=== PATIENT | male | born 1955 | race Caucasian/White ===

== ENCOUNTER → 2023-05-14 07:23 | Outpatient (REF) | payer MEDICARE, OTHER, SELFPAY ==
[2023-05-14 09:14] LABS: ALT (SGPT) 36 U/L (0-50); AST (SGOT) 37 U/L (17-59); Albumin 4.1 g/dl (3.5-5.0); Alkaline Phosphatase 62 U/L (38-126); Blood Urea Nitrogen 21 mg/dl (9-20); Calcium 9.7 mg/dl (8.4-10.2); Carbon Dioxide 31 mmol/L (22-30); Chloride 100 mmol/L (98-107); Glucose 107 mg/dl (70-99); HDL Cholesterol 50 mg/dl; LDL Cholesterol, Calculated 54 mg/dl; Potassium 3.8 mmol/L (3.5-5.1); Sodium 138 mmol/L (135-145); Total Bilirubin 1.8 mg/dl (0.2-1.3); Total Cholesterol 123 mg/dl (50-199); Total Protein 7.1 g/dl (6.3-8.2); Triglyceride 99 mg/dl (10-149); Very Low Density Lipoprotein 19 mg/dl (0-30); eGFR > 60.00
== END ==
LOC: REG 07:23
PROVIDERS: ATTENDING PHYSICIAN Student in an Organized Health Care Education/Training Program
DX: Z00.00 Encounter for general adult medical examination without abnormal findings (principal); R93.1 Abnormal findings on diagnostic imaging of heart and coronary circulation; E78.00 Pure hypercholesterolemia, unspecified
CPT/HCPCS: 36415; 80053; 80061

== ENCOUNTER → 2023-12-31 07:09 | Outpatient (REF) | payer MEDICARE, OTHER, SELFPAY ==
[2023-12-31 09:21] LABS: ALT (SGPT) 35 U/L (0-50); AST (SGOT) 40 U/L (17-59); Albumin 4.7 g/dl (3.5-5.0); Alkaline Phosphatase 59 U/L (38-126); Blood Urea Nitrogen 21 mg/dl (9-20); Calcium 9.8 mg/dl (8.4-10.2); Carbon Dioxide 29 mmol/L (22-30); Chloride 102 mmol/L (98-107); Glucose 102 mg/dl (70-99); HDL Cholesterol 55 mg/dl; LDL Cholesterol, Calculated 64 mg/dl; Potassium 4.5 mmol/L (3.5-5.1); Sodium 143 mmol/L (135-145); Total Bilirubin 1.6 mg/dl (0.2-1.3); Total Cholesterol 127 mg/dl (50-199); Total Protein 7.2 g/dl (6.3-8.2); Triglyceride 43 mg/dl (10-149); Very Low Density Lipoprotein 8 mg/dl (0-30); eGFR > 60.00
[2023-12-31 09:44] LABS: PSA, Total - Screen 2.89 ng/ml (0.0-4.0)
[2023-12-31 10:24] LABS: TSH Reflex To Free T4 0.64 uIU/ml (0.47-4.68)
== END ==
LOC: REG 07:09
PROVIDERS: ATTENDING PHYSICIAN Student in an Organized Health Care Education/Training Program
DX: Z00.00 Encounter for general adult medical examination without abnormal findings (principal); I10 Essential (primary) hypertension; E78.00 Pure hypercholesterolemia, unspecified; E78.5 Hyperlipidemia, unspecified
CPT/HCPCS: 36415; 80053; 80061; 84443; G0103

== ENCOUNTER → 2024-01-13 07:37 | Outpatient (REF) | payer MEDICARE, OTHER, SELFPAY | LOC: HWRAD 07:37 | PROVIDERS: ATTENDING PHYSICIAN Student in an Organized Health Care Education/Training Program | DX: E04.9 Nontoxic goiter, unspecified (principal) | CPT/HCPCS: 76536 ==

== ENCOUNTER → 2024-01-23 13:02 | Outpatient (REF) | payer MEDICARE, OTHER, SELFPAY | LOC: HWRAD 13:02 | PROVIDERS: ATTENDING PHYSICIAN Internal Medicine; FAMILY PHYSICIAN Student in an Organized Health Care Education/Training Program | DX: Z87.891 Personal history of nicotine dependence (principal) | CPT/HCPCS: 76770 ==

== ENCOUNTER → 2024-01-24 15:43 | Outpatient (REF) | payer MEDICARE, OTHER, SELFPAY | LOC: HWRCS 15:43 | PROVIDERS: ATTENDING PHYSICIAN Internal Medicine; FAMILY PHYSICIAN Student in an Organized Health Care Education/Training Program | DX: I10 Essential (primary) hypertension (principal) | CPT/HCPCS: 93306 ==

== ENCOUNTER → 2024-02-08 10:01 | Outpatient (REF) | payer MEDICARE, OTHER, SELFPAY ==
[2024-02-08 10:10] VITALS: BP 140/86; BP_SYST 80
[2024-02-08 11:35] VITALS: BP 140/86
== END ==
LOC: RADI 10:01
PROVIDERS: ATTENDING PHYSICIAN Student in an Organized Health Care Education/Training Program
DX: E04.1 Nontoxic single thyroid nodule (principal)
CPT/HCPCS: 88173; 10005

== ENCOUNTER → 2024-02-22 06:26 | Day surgery (SDC) | payer MEDICARE, OTHER, SELFPAY | LOC: GI 06:26 | PROVIDERS: ATTENDING PHYSICIAN Internal Medicine Gastroenterology | DX: Z12.11 Encounter for screening for malignant neoplasm of colon (principal); K64.8 Other hemorrhoids; Z86.0100 Personal history of colon polyps, unspecified | CPT/HCPCS: G0105 ==

== ENCOUNTER 2024-03-17 11:09 | Inpatient (IN) | payer MEDICARE, OTHER, SELFPAY ==
[2024-03-17] VITALS (18 sets, daily range): BP systolic 93–149; BP diastolic 63–115; BMI 26.2
[2024-03-17 08:36] LABS: % Basophils 0.6 % (0-2); % Eosinophils 2.2 % (0-6); % Immature Granulocytes 0.6 % (0-0.5); % Monocytes 10.7 % (1.7-9.3); % Neutrophils 60.9 % (42.2-75.2); Absolute Eosinophils 0.1 10^3/uL (0-0.7); Absolute Lymphocytes 1.3 10^3/uL (1.2-3.4); Absolute Monocytes 0.5 10^3/uL (0.1-0.6); Absolute Neutrophils 3.1 10^3/uL (1.4-6.5); Hematocrit 47.3 % (39.0-52.0); Hemoglobin 16.6 g/dL (13.0-18.0); Mean Corp Hgb Conc. 35.1 g/dL (33.0-37.0); Mean Corpuscular Hgb 31.3 pg (27.0-31.0); Mean Corpuscular Volume 89.1 fL (80.0-94.0); Mean Platelet Volume 10.1 fL (7.4-10.4); Nucleated Red Blood Cells % 0 % (-); Platelet Count 160 10^3/uL (130-400); Red Blood Cell Count 5.31 10^6/uL (4.70-6.10); Red Cell Dist. Width 13.2 % (11.5-14.5); White Blood Cell Count 5.1 10^3/uL (4.8-10.8)
[2024-03-17 08:40] LABS: INR 0.97; PT 13.4 Sec (11.4-14.6)
[2024-03-17 08:41] LABS: APTT 32.3 Sec (23.4-35.0)
[2024-03-17 08:42] LABS: ALT (SGPT) 37 U/L (0-50); AST (SGOT) 41 U/L (17-59); Albumin 4.7 g/dl (3.5-5.0); Alkaline Phosphatase 48 U/L (38-126); Blood Urea Nitrogen 20 mg/dl (9-20); Calcium 9.9 mg/dl (8.4-10.2); Carbon Dioxide 30 mmol/L (22-30); Chloride 97 mmol/L (98-107); Estimated Creatinine Clearance 85 ml/min; Glucose 135 mg/dl (70-99); Potassium 4.1 mmol/L (3.5-5.1); Sodium 137 mmol/L (135-145); Total Bilirubin 1.7 mg/dl (0.2-1.3); Total Protein 7.3 g/dl (6.3-8.2); eGFR > 60.00
[2024-03-17 08:44] LABS: Troponin I 0.123 ng/ml
--- NOTE | 2024-03-17 09:04 | EDRN ---
0930 Dr. Godoy from Cardiology at the bedside assessing the patient, obtaining consent, and requests to leave for the scientific laboratory supervisor now. plug maker to the scientific laboratory supervisor and care handed off to the staff at 0844. No incidents during transport with
cardiology and spouse present.
DISCHARGED TIME ACTUALLY 0840
--- NOTE | 2024-03-17 09:07 | ED.GENMED ---
History of Present Illness
General
Chief Complaint: Chest Pain
Source: patient
Time Seen by Provider: 03/17/24 08:57
History of Present Illness
History of Present Illness:
69-year-old male presents to the emergency room complaining of throat and upper chest discomfort. He describes it as a burning or tightness. Patient had an episode last night which was significant but went away after few minutes. This morning
while reading a book the pain returned and was severe. He rates it at 9 out of 10. Upon arrival to the emergency room the pain seemed to improve significantly but was still present. Patient denies any previous cardiac history. He quit smoking in
2010. He does have a history of hypertension and high cholesterol. He did not take any medication today for his symptoms.
Past History
Past History
ED Past Medical History: HTN
ED Past Surgical History: Orthopedic
Social History
Tobacco: Former smoker
Personal:
Living: with family
Employment: Employed
Phy Exam
Physical Exam
Physical Exam:
General: Awake, Alert, Oriented X3. No acute distress.
Vitals: unremarkable
Head: Atraumatic
Eyes: Pupils equal, EOMI
Throat: Airway intact, no exudates
Neck: Trachea midline
Lungs: Clear and equal b/l
Heart: Regular rate, no murmurs
Abd: Soft, Nontender, No pulsatile mass
Neuro: Nonfocal
Skin: Warm, dry, no rash
Extremities: pulses equal b/l, no edema
Scores
Heart Score for Chest Pain Patients
STEMI patient?: Yes
Course
Orders/Labs/Results
Orders:
Orders
03/17/24
Electrocardiogram (*1) Stat
Reason for Study: Chest Pain
Comment: DONE
03/17/24 07:51
EKG- Treatment ONCE
03/17/24 07:52
Electrocardiogram (*1) Urgent
Reason for Study: Chest Pain
03/17/24 08:03
Cardiac Monitoring- Treatment ONCE
IV Insert/Care/Rem.- Treatment PRN
O2 Therapy [RESP] Urgent
Titrate/Wean O2 to maintain O2 sat greater than (%): 90
Special Instructions: Maintain sats >/=90%
Pulse Ox/spot Check [RESP] Urgent
Quantity: 1
Special Instructions: ON ROOM AIR
03/17/24 08:05
Complete Blood Count/With Diff Urgent
Comprehensive Metabolic Panel Urgent
PT/INR [Prothrombin Time] Urgent
PTT Urgent
Troponin I Urgent
03/17/24 08:41
Heparin 1000 Units/500 ml [Heparin] 1,000 units in 500 ml .ROUTE .STK-MED
Heparin Sodium,Porcine/Ns/Pf [Heparin 2000 Units/1000 ml] 2,000 unit in 1,000 ml .ROUTE .STK-MED
Lidocaine HCl/Pf [Xylocaine-Mpf 1% Vial] 50 mg .ROUTE .STK-MED ONE
Nitroglycerin [Tridil] 1,500 mcg .ROUTE .STK-MED ONE
Verapamil Injectable [Isoptin/Verapamil Injection] 5 mg .ROUTE .STK-MED ONE
03/17/24 08:50
Midazolam HCl [Versed] 2 mg .ROUTE .STK-MED ONE
03/17/24 08:51
Fentanyl Citrate/Pf [Sublimaze] 100 mcg .ROUTE .STK-MED ONE
Heparin 10,000 units .ROUTE .STK-MED ONE
Abnormal Lab Results
03/17/24
08:05
MCH 31.3 H pg
(27.0-31.0)
Immature Gran % 0.6 H %
(0-0.5)
Monocytes % 10.7 H %
(1.7-9.3)
Chloride 97 L mmol/L
(98-107)
Glucose 135 H mg/dl
(70-99)
Total Bilirubin 1.7 H mg/dl
(0.2-1.3)
Troponin I 0.123 H* ng/ml
03/17/24 08:05
03/17/24 08:05
Vital Signs
Initial and Last Documented VS:
Initial Vital Signs
Pulse Ox
97
03/17/24 08:03
Last Documented Vital Signs
Temp Pulse Resp BP Pulse Ox
97.9 F 86 11 147/91 98
03/17/24 08:08 03/17/24 08:30 03/17/24 08:30 03/17/24 08:30 03/17/24 08:30
MDM/Problems Addressed
Differential Diagnosis Includes:
STEMI, acute coronary syndrome, chest wall pain
MDM/Problems Addressed:
Patient's initial EKG consistent with a STEMI. There is ST elevation in 2 3 aVF with reciprocal changes in aVL. STEMI alert was called. Dr. Marx evaluated the patient briefly at the bedside. There is a previous STEMI alert who he is about to
take to the Loss Control Consultant. Backup die assembler has been summoned. Dr. Anderson will take this patient to the Loss Control Consultant soon as possible. Patient was given 4 baby aspirin, 180 mg of Brilinta and 5000 unit bolus of heparin. Patient states
his chest pain has almost completely gone away spontaneously.
Chronic conditions affecting care: HTN
*Pulse Oximetry
Patient hypoxic: no
*EKG
Interpreted by ED Provider?: Yes
Heart Rate: 89
Rate: normal
Rhythm: sinus
Ischemia: ST elevation (II, III, avf with reciprocal changes in aVL)
*Certified Orthoptist Interpretation
Rate: normal
Interpretation: normal
Rhythm: sinus
*Critical Care Note
Total Time (30-74mins, 75-104mins- exclusive of procedures): 25 min
comment:
Critical care statement: A total of 25 minutes of critical care time was provided for this patient. This includes management of unstable vital signs, evaluation of the patient at bedside, reviewing the patient's pertinent medical records, discussion
with consultants, review of old EKGs and review of pertinent medical records. This time with separate from time utilized to perform the aforementioned documented procedures
ED Attending Note
-
Portions of this chart may have been created with voice recognition software.� Occasional wrong word or��sound alike� substitutions may have occurred due to the inherent limitations of voice recognition software.
Discharge Plan
Departure
Patient Disposition: Admit
Admit to: farm labor contractor
Presentation/result/management discussed w/ accepting MD/DO: Dr. Anderson
Condition: Serious
Discharge Problem:
Acute NC, inferior wall
Interventions
Interventions:
*Risk Screen - Suicide Last Done: 03/17/24 08:03
*General Assessment Last Done: 03/17/24 08:03
*Neglect/Abuse Screening Last Done: 03/17/24 08:03
ED- Fall Risk Assessment Last Done: 03/17/24 08:03
*ED COVID-19 Vaccine History Last Done: 03/17/24 08:03
*Nursing Disposition Last Done: 03/17/24 08:40
ED- Cardiac Assessment Last Done: 03/17/24 08:03
Discharge Date and Time
Discharge Date/Time: 03/17/24 09:00
--- NOTE | 2024-03-17 10:47 | CON.CAR ---
Consultation
Consultation Request
Date/Time Consultation Requested: 03/17/2024 8 AM
Date/Time Consultation Performed: 03/17/2024 8 AM
Requesting Provider: Dr. Best Amin
Performing Provider: Dr. Reza Anderson
Reason for Consultation: Inferior STEMI
Medical History
-
Chief Complaint: Chest pain
History of Present Illness:
Mr. Martinez is a 69-year-old man with past medical history of hypertension, former smoking, CAD based on elevated calcium score, hyperlipidemia, who presents with 2 days of stuttering chest pain found to have inferior STEMI. He first noted
symptoms 2 nights ago where he woke from sleep with throat tightness. This resolved without intervention. This morning he had a second episode which was more severe prompting him to come to the ED where initial EKG in the setting of severe chest
pain demonstrated inferior ST elevations. He was given heparin aspirin, and ticagrelor. Chest pain improved with normalization of ECG changes, but based on his initial presenting definitive STEMI he was activated emergently for coronary
angiography. This demonstrated a thrombotic lesion in the proximal RCA as well as distal RCA disease which was treated with 2 overlapping stents with excellent result. He developed a left bundle branch block during the procedure. At the
conclusion of the procedure he was hemodynamically stable and chest pain-free and was admitted to the IVU for further care.
Past Medical History
Past Medical History: CAD
Social History
Tobacco: Former Smoker
Allergies / Home Medications
Allergy/AdvReac Type Severity Reaction Status Date / Time
erythromycin base Allergy mood Verified 03/17/24 10:42
[From Kevin-Tab] effected
oxycodone AdvReac Pharmacy Verified 03/17/24 10:42
to Review
�Medication �Instructions �Recorded �Confirmed �Type
lorazepam 0.5 mg tablet 0.5 mg PO HS PRN SLEEP 01/10/18 02/02/18 History
aspirin 325 mg tablet,delayed 325 mg PO DAILY 02/02/18 02/02/18 Rx
release
acetaminophen 325 mg tablet 650 mg (2 x 325 mg) PO Q4HPRN PRN 02/07/18 03/17/24 Rx
mild pain
atorvastatin 40 mg tablet (Lipitor) 40 mg PO DAILY 03/17/24 03/17/24 History
benazepril 10 1 tab PO DAILY 03/17/24 03/17/24 History
mg-hydrochlorothiazide 12.5 mg
tablet
omeprazole magnesium 20 mg 20 mg PO DAILY 03/17/24 03/17/24 History
tablet,delayed release (Prilosec
OTC)
Review of Systems
-
Cardiac: Chest Pain
Physical Exam
Vital Signs
Temp Pulse Resp BP Pulse Ox
36.6 C 86 11 147/91 98
03/17/24 08:08 03/17/24 08:30 03/17/24 08:30 03/17/24 08:30 03/17/24 08:30
Lab Results
03/17/24 08:05
03/17/24 08:05
Troponin I 0.123 ng/ml H* 03/17/24 08:05
Physical Exam
General: Well Developed
Respiratory: Non Labored Respirations
Cardiac: Regular Rhythm
Neuro: AO x 3
Impression / Plan
-
69-year-old man with hypertension, hyperlipidemia, coronary artery disease, who presents with inferior STEMI status post successful PCI.
# CAD
# STEMI
# HLD
- cont. DAPT with ASA/ticagrelor for 12 months
- lisinopril 5
- despite well controlled LDL (50-60s recently on Lipitor 40) he had a plaque rupture [place], so will need as ALARA LDL. Will transition to Crestor 40 and ezetimibe, with plan to start PCSK9i as outpatient
- check Lp(a) and A1c
- will plan for possible complete revascularization of the non-culprit 60% mid-LAD Tuesday
# LBBB
- occurred after re-canalization of the RCA
- will hold beta diony for now
- monitor tele
# HTN
- HZTC [address] home benazapril-HCTZ
- titrate for goal <130/70
Data Reviewed
-
EKG: Tracing Personally Visualized and interpreted, Discussed with Physician, Discussed with Patient and Discussed with Family
Labs: Labs Reviewed by me
--- NOTE | 2024-03-17 11:04 | ITS.CL.PN ---
Guest Request Runner - Procedure Note
Procedure
Procedure Note:
CARDIAC CATHETERIZATION REPORT
Date of Procedure: 03/17/2024
Referring: Dr. Tommy Amin MD
Indication: inferior STEMI
PROCEDURE(S)
1. left heart catheterization
2. coronary angiography
3. PCI of RCA with stent
4. IVUS of RCA
ACCESS: 6F right radial artery (closure: radial band)
CATHETERS
1. 6F JL3.5
2. 6F JR4
3. 6F JR4 guide
HEMODYNAMIC DATA
LV 140/14 (EDP 23) mmHg
AO 134/81 (mean 102) mmHg
CORONARY ANGIOGRAPHY
Dominance: right
LM: Large without disease
LAD: Large vessel giving rise to a moderate caliber D1, small D2 and multiple septal perforators. There is a focal 60% stenosis in the proximal portion of D1 (best seen HUNGARIAN cranial), a 60% stenosis in the mid-LAD from just proximal to D1 extending
to the takeoff of D2, and otherwise diffuse mild disease.
LCx: Large vessel giving rise to a large high rising ramus/OM1, moderate caliber OM 2, and large OM 3. There is diffuse non-obstructive mild to moderate disease.
RCA: Very large and tortuous vessel giving rise to a large RPDA, small RPL 1, small RPL 2, moderate caliber RPL 3, and small RPL 4. There is a thrombotic lesion in the proximal RCA, diffuse mild to moderate disease throughout the mid vessel, a
focal 60% lesion in the mid-distal vessel.
PCI to RCA
Heparin was administered to achieve ACT greater than 300. The RCA was engaged with a 6 [place] Sor[place] JR4 guide catheter and a Runthrough wire placed in the distal RPDA. Initial lesion preparation was performed with a 2.5 x 12 mm semicompliant balloon
followed by a 3.5 x 12 noncompliant balloon with full expansion. Given the tortuous and calcified nature of the vessel a 6 [place] Sor[place] Guideliner was required to facilitate delivery of overlapping 4.0 x 38 and 4.0 x 26 mm [place] drug-eluting
stents. IVUS was performed demonstrating distal stent edge apposition, mild underexpansion at the lesion site, and mild undersizing in the non-distal portion of the stent. Post dilation was thus performed with a 4.5 x 20 mm NC balloon taken to
nominal pressure at the distal stent edge and 18 mmHg everywhere else. Final angiographic result was excellent. During the case the patient developed a left bundle branch block in sinus rhythm. He remained hemodynamically stable throughout the
case. The wire and guide were removed and a TR band placed. The patient was taken to the IVU in stable condition. Family was updated.
RADIATION: dose 1373 mGy; DAP 90 Gy*cm2; fluoroscopy time 28.5 min
CONCLUSIONS
1. Two-vessel obstructive coronary artery disease in a right dominant system with culprit proximal RCA stenosis.
2. Moderately elevated LV filling pressure and no aortic stenosis.
2. Successful IVUS guided PCI of the proximal to mid RCA with placement of overlapping 4.0 x 38 and 4.0 x 26 mm Christophe [place] drug-eluting stents postdilated to high-pressure with a 4.5 mm NC balloon.
RECOMMENDATIONS
1. expectant management after cardiac catheterization via right radial approach
2. DAPT with ASA/ticagrelor for 1 year
3. hold beta diony for now given LBBB, monitor tele
4. transition to rosuvastatin 40 and ezetimibe 10
5. lisinopril [address] of home benazepril-HCTZ, eventual goal BP <130/70
6. will consider complete revascularization of the LAD Tuesday
Copy to: Dr. Best Rosenthal MD (bicycle taxi driver); Dr. Tyra Ivey MD (PCP)
Signed: Jarett Godoy MD, PhD
[2024-03-17 11:29] LABS: Troponin I 0.805 ng/ml
[2024-03-17 11:40] LABS: Glycohemoglobin (HgbA1c) 5.4 % (4.0-5.6)
[2024-03-17] MEDS: ORETIC 25 MG PO (12:25)
[2024-03-17] MEDS: ZESTRIL 5 MG PO (12:26)
[2024-03-17] MEDS: CRESTOR 40 MG PO (17:30)
--- NOTE | 2024-03-17 18:01 | PTCARENOTE ---
Assumed care of pt at aprox 1500. Vitals stable. Pt with no c/o pain at this time. Pt with right radial cath site, pulse good and dressing CDI. SR BBC on monitor.
[2024-03-17] MEDS: BRILINTA 90 MG PO (20:31)
[2024-03-18] VITALS (9 sets, daily range): BP systolic 107–125; BP diastolic 70–93; BMI 24.7
--- NOTE | 2024-03-18 00:05 | PTCARENOTE ---
Rec'd pt at change of shift. Pt pleasant, AAO*3, VSS, and in NSR on TELE monitor. Pt denies any pain or discomfort. Pt updated on plan of care and agreeable. Pt resting with call moody in reach. Plan of care ongoing.
[2024-03-18 05:00] LABS: Hematocrit 45.6 % (39.0-52.0); Hemoglobin 16.3 g/dL (13.0-18.0); Mean Corp Hgb Conc. 35.7 g/dL (33.0-37.0); Mean Corpuscular Hgb 30.8 pg (27.0-31.0); Mean Corpuscular Volume 86.2 fL (80.0-94.0); Mean Platelet Volume 10.4 fL (7.4-10.4); Platelet Count 165 10^3/uL (130-400); Red Blood Cell Count 5.29 10^6/uL (4.70-6.10); White Blood Cell Count 8.2 10^3/uL (4.8-10.8)
[2024-03-18 05:25] LABS: Blood Urea Nitrogen 16 mg/dl (9-20); Calcium 9.6 mg/dl (8.4-10.2); Carbon Dioxide 25 mmol/L (22-30); Chloride 100 mmol/L (98-107); Estimated Creatinine Clearance 96 ml/min; Glucose 106 mg/dl (70-99); HDL Cholesterol 42 mg/dl; LDL Cholesterol, Calculated 60 mg/dl; Potassium 3.6 mmol/L (3.5-5.1); Sodium 135 mmol/L (135-145); Total Cholesterol 124 mg/dl (50-199); Triglyceride 112 mg/dl (10-149); Very Low Density Lipoprotein 22 mg/dl (0-30); eGFR > 60.00
--- NOTE | 2024-03-18 08:11 | PTCARENOTE ---
pt recevied form outgoing RN, pt aaox4, up in bed, breakfast in the room, vss, ra, no c/o cp, self care, continue to monitor and assist as needed.
[2024-03-18] MEDS: ORETIC 25 MG PO (08:45)
[2024-03-18] MEDS: ZETIA 10 MG PO (08:45)
[2024-03-18] MEDS: LOW STRENGTH ASPIRIN 81 MG PO (08:45)
[2024-03-18] MEDS: BRILINTA 90 MG PO ×2 (08:45→19:23)
[2024-03-18] MEDS: ZESTRIL 5 MG PO (08:45)
[2024-03-18] MEDS: PROTONIX 40 MG PO (08:45)
--- NOTE | 2024-03-18 11:37 | W.PN.CD ---
Today's Communication / Plan
-
npo after midnight for cath tomorrow
Impression / Plan
-
69-year-old man with hypertension, hyperlipidemia, coronary artery disease, who presents with inferior STEMI status post successful PCI.
# CAD
# STEMI
# HLD
- cont. DAPT with ASA/ticagrelor for 12 months
- lisinopril 5
- despite well controlled LDL (50-60s recently on Lipitor 40) he had a plaque rupture [place], so will need as ALARA LDL. Will transition to Crestor 40 and ezetimibe, with plan to start PCSK9i as outpatient
- check Lp(a) and A1c
- will plan for complete revascularization of the non-culprit 60% mid-LAD Tuesday
# LBBB
- occurred after re-canalization of the RCA
- will hold beta diony for now
- monitor tele
# HTN
- HZTC [address] of home benazapril-HCTZ
- titrate for goal <130/70
Subjective: STEVE feels well
Physical Exam
Vital Signs/Labs
Vital Signs
Temp Pulse Resp BP Pulse Ox
97.3 F 77 20 125/93 97
03/18/24 11:32 03/18/24 08:03 03/18/24 11:32 03/18/24 08:03 03/18/24 11:32
03/17/24 03/18/24 03/19/24
06:59 06:59 06:59
Actual Weight 186 lb 15.232 oz
03/18/24 04:16
03/18/24 04:16
PT 13.4 Sec (11.4-14.6) 03/17/24 08:05
INR 0.97 03/17/24 08:05
APTT 32.3 Sec (23.4-35.0) 03/17/24 08:05
Triglycerides 112 mg/dl (10-149) 03/18/24 04:16
LDL Cholesterol, Calc 60 mg/dl 03/18/24 04:16
VLDL Cholesterol, Calc 22 mg/dl (0-30) 03/18/24 04:16
HDL Cholesterol 42 mg/dl 03/18/24 04:16
LAB Results
03/17/24 03/17/24 03/17/24
08:05 10:56 17:05
Troponin I 0.123 H* 0.805 H* D 2.570 H* D
03/17/24
22:50
Troponin I 2.080 H*
Physical Exam
Constitutional: No acute distress and Comfortable
EENT: Anicteric
Cardiovascular: Rhythm & rate is regular and Pedal edema is absent
Respiratory: Respiratory effort normal and Lungs clear to auscul.
Neuro/Psych: AO x 3
Other: Cath Site (2+ radial pulse )
Data Reviewed
-
Date of Service: March 18, 2024
Medical Decision Making: Reviewed Test Results
EKG: Tracing Personally Visualized and interpreted (sr)
Labs: Labs Reviewed by me
--- NOTE | 2024-03-18 12:09 | PTCARENOTE ---
Pt reassessment unchanged from previous, vss, ra, nsr with rbbb, oob in chair per self, ambulating halls.
--- NOTE | 2024-03-18 16:28 | PTCARENOTE ---
Pt reassessment unchanged from previous, vss, ra, nsr with rbbb, no c/o cp, ambulating in the room, self care, plan for cathlab tomorrow npo @ midnight.
[2024-03-18] MEDS: CRESTOR PO (16:51)
[2024-03-18] MEDS: LOVENOX 40 MG SC (18:40)
[2024-03-18] MEDS: CRESTOR 40 MG PO (18:40)
[2024-03-19] VITALS (14 sets, daily range): BP systolic 111–182; BP diastolic 61–163; BMI 24.6
--- NOTE | 2024-03-19 03:24 | PTCARENOTE ---
Rec'd pt at change of shift. Pt AAO*3, VSS, in NSR on TELE monitor, and pleasant. Pt denies any pain or discomfort. Pt updated on plan of care and NPO status for upcoming heart cath in morning. Pt resting with call moody in reach. Plan of care
ongoing.
[2024-03-19] MEDS: LOW STRENGTH ASPIRIN 81 MG PO (07:53)
[2024-03-19] MEDS: BRILINTA 90 MG PO ×2 (07:53→19:43)
--- NOTE | 2024-03-19 07:57 | PTCARENOTE ---
pt left for cath, report given to Minnie CROWDER.
[2024-03-19 08:39] LABS: ACT-LR - POC 400 Seconds (116-155)
[2024-03-19 08:57] LABS: ACT-LR - POC > 397 Seconds (116-155)
[2024-03-19 08:57] LABS: ACT-LR - POC > 397 Seconds (116-155)
[2024-03-19 09:31] LABS: ACT-LR - POC 379 Seconds (116-155)
[2024-03-19 09:31] LABS: ACT-LR - POC 339 Seconds (116-155)
[2024-03-19 10:18] LABS: ACT-LR - POC 331 Seconds (116-155)
[2024-03-19 10:55] LABS: ACT-LR - POC 252 Seconds (116-155)
[2024-03-19] MEDS: PROTONIX 40 MG PO (11:58)
[2024-03-19] MEDS: ORETIC 25 MG PO (11:58)
[2024-03-19] MEDS: ZESTRIL 5 MG PO (11:58)
[2024-03-19] MEDS: ZETIA 10 MG PO (11:58)
--- NOTE | 2024-03-19 12:00 | PTCARENOTE ---
late note due to pt care.
pt returned from cleaning laborer @ 1140. VSS, educated on expected OOB time and restrictions. Right wrist CDI. 97% on RA. Will continue to monitor.
[2024-03-19 12:09] LABS: Lipoprotein a (Lp a) <6 mg/dL (<=29)
--- NOTE | 2024-03-19 12:26 | CM ---
Reviewed chart. Met with and Mrs. Martinez to review discharge plans. He states prior to admission he resides with his spouse in a two story home with two steps to enter. He states he has a first floor set-up. He states prior to admission he
was independent with ambulation and adls. He states he has a prescription plan with [employer] and uses [facility]. We reviewed his co-pay for Brilinta 90 mg po bid. He is still in his stage one of his coverage and he has not met his
deductible. Si His first script would be $413.00 a month until his deductible has been met. Then it would be $103.04. a month. They are agreeable to covering the cost of Brilinta for a year. Placed the one month free coupon in his red discharge
folder. Telephone call to [facility] to see if they have Brilinta 90 mg po bid in stock. They have a few pill but not the whole script. N.P will send script to [facility] so they can order the medication. Medical work-up in progress. The
discharge plan is to return home with his spouse when medically stable.
[2024-03-19] MEDS: TYLENOL 650 MG PO ×2 (12:33→19:43)
--- NOTE | 2024-03-19 13:59 | ITS.CL.PN ---
[facility] Specialist - Procedure Note
Procedure
Procedure Note:
CARDIAC CATHETERIZATION REPORT
Date of Procedure: 03/19/2024
Referring: Dr. Jarett Anderson MD, PhD
Indication: Complete revascularization after STEMI
PROCEDURE(S)
1. left heart catheterization
2. PCI with stent to diagonal artery
3. IVUS of LAD
4. Shockwave lithotripsy of LAD
5. PCI with stent to LAD
ACCESS: 6F right radial artery (closure: radial band)
CATHETERS: 6F EBU 3.5 guide catheter
HEMODYNAMIC DATA
LV [ ] mmHg
AO [ ] mmHg
PCI to D1 and LAD
Heparin was administered to achieve ACT greater than 300. Runthrough coronary wires were placed in the D1 and distal LAD. With GuideLiner support, initial lesion preparation of the diagonal was achieved with a 2.0 x 12 mm balloon taken to nominal
pressure. With some difficulty, a 2.25 x 12 mm stent was delivered and deployed at 16 JUSTIN to the diagonal. Angiographic result was excellent. Attention then turned to the LAD. Initial lesion preparation was performed with a 2.5 x 12 mm balloon.
IVUS was performed and demonstrated concentric calcification of the lesion site and 3.75 mm reference diameter. Shockwave lithotripsy was performed with a 3.5 x 12 mm lithotripsy balloon with 40 pulses delivered with full expansion at 6 JUSTIN.
Stenting was performed with a 3.5 x 15 mm stent at 16 JUSTIN. Post dilation was performed with a 3.75 x 12 mm NC balloon taken to 18 justin. There was noted to be haziness in the ostial diagonal concerning for dissection or thrombus. The decision was
made to perform bailout PCI of the ostial to proximal diagonal. The diagonal was rewired through stent struts with a fresh Runthrough wire, followed by opening of cell struts with a 1.5 x 12 mm balloon. Lesion preparation was performed with a
2.0x12 mm balloon. While there was angiographic improvement in the diagonal and WILMAR-3 flow there remained haziness. Thus, the decision was made to perform TAP stenting of the LAD/diagonal. A 3.5 x 12 mm semi-compliant balloon was placed in the
distal LAD followed by delivery of a 2.25 x 8 mm SADIA to the ostial to proximal diagonal overlapping the previous diagonal stent distally and with ~1 mm protrusion into the LAD proximally. The stent was delivered at 16 JUSTIN, followed by kissing
balloon inflation with the stent balloon and propositioned 3.5 x 12 compliant balloon. Angiographic result was excellent. However, there now appeared an area of haziness at the proximal stent edge of the LAD. Integrilin bolus and drip were
initiated. IVUS was performed and demonstrated plaque but no definitive thrombus or dissection. There was no dissection noted in the left main. Given persistent angiographic abnormality despite in multiple views, the decision was made to cover
the proximal LAD with a second 3.5 x 12 mm stent. This was then postdilated to high-pressure with a 3.75 x 12 mm NC balloon. Final angiographic result was excellent other than a very distal cutoff of the LAD, likely embolized thrombus. The
patient had no chest pain and there were no ST changes on the monitor. The wire and guide were removed. LVEDP was measured with a diagnostic pigtail catheter. A TR band was placed. The patient was taken in stable condition to the IVU with plan
for 4 hours of Integrilin drip and overnight monitoring.
RADIATION: dose 2043 mGy; DAP 105 Gy*cm2; fluoroscopy time 52.7 min
CONCLUSIONS
1. Successful IVUS-guided PCI to the LAD-diagonal with Shockwave lithotripsy of the LAD and placement of overlapping 2.25x12 and 2.25x8 mm SADIA in the diagonal and overlapping 3.5x15 and 3.5x12 mm SADIA in the LAD (TAP technique used for LAD-diagonal
bifurcation).
2. At case conclusion, there was occlusion of the very distal LAD with no chest pain or ECG changes. This is likely embolized thrombus and will be treated with temporary G2b3a drip.
RECOMMENDATIONS
1. expectant management after cardiac catheterization via right radial approach
2. Integrilin x4 hours
3. cont. DATP with ASA/ticag for 1 year
4. aggressive secondary management of CAD with goal LDL cholesterol as low as reasonably achievable
5. start low dose metoprolol
6. echo today
7. cardiac rehab on discharge
Copy to: Dr. Best Rosenthal MD (nuclear fuels research engineer); Dr. Tyra Ivey MD (PCP)
Signed: Jarett Godoy MD, PhD
[2024-03-19 14:10] LABS: ACT-LR - POC > 397 Seconds (116-155)
[2024-03-19] MEDS: MORPHINE SULFATE 1 MG IV (14:31)
[2024-03-19] MEDS: LIPITOR 80 MG PO (17:16)
[2024-03-19] MEDS: LOVENOX 40 MG SC (17:16)
--- NOTE | 2024-03-19 21:30 | PTCARENOTE ---
At 21:35 TELE monitor alarmed Vtach/Vfib. HR 111. EKG obtained showing pt in NSR with LBBB. Pt denies feeling any pain or palpitations. BP 128/93. Pt was found in bathroom using restroom and walking back to bed when he heard the tele monitor
alarm. Pt agreed to report any new pain or discomfort. Plan of care ongoing.
--- NOTE | 2024-03-20 00:31 | PTCARENOTE ---
Rec'd pt at change of shift. Pt AAO*3, VSS, and in NSR on TELE monitor. Pt denies any pain or discomfort but reports headache. Tylenol given for headache as ordered (see mar for assessment). Pt with R radial site CDI and aware of right limb
restrictions. Pt resting with call moody in reach and plan of care ongoing.
[2024-03-20 03:43] VITALS: BP 136/88
[2024-03-20 03:45] VITALS: BP 136/88
[2024-03-20 04:34] LABS: Hemoglobin 16.3 g/dL (13.0-18.0); Mean Corp Hgb Conc. 35.4 g/dL (33.0-37.0); Mean Corpuscular Hgb 30.9 pg (27.0-31.0); Mean Corpuscular Volume 87.3 fL (80.0-94.0); Platelet Count 155 10^3/uL (130-400); Red Blood Cell Count 5.27 10^6/uL (4.70-6.10); Red Cell Dist. Width 12.8 % (11.5-14.5); White Blood Cell Count 8.4 10^3/uL (4.8-10.8)
[2024-03-20 04:53] LABS: Blood Urea Nitrogen 18 mg/dl (9-20); Calcium 9.3 mg/dl (8.4-10.2); Carbon Dioxide 24 mmol/L (22-30); Chloride 98 mmol/L (98-107); Estimated Creatinine Clearance 96 ml/min; Glucose 116 mg/dl (70-99); Potassium 3.7 mmol/L (3.5-5.1); Sodium 133 mmol/L (135-145); eGFR > 60.00
[2024-03-20 06:00] VITALS: BMI 24.6
[2024-03-20 07:49] VITALS: BP 125/80
[2024-03-20] MEDS: ZESTRIL 5 MG PO (08:49)
[2024-03-20] MEDS: BRILINTA 90 MG PO (08:49)
[2024-03-20] MEDS: FLUSH (NSS) 1 FLUSH IV (08:49)
[2024-03-20] MEDS: LOW STRENGTH ASPIRIN 81 MG PO (08:49)
[2024-03-20] MEDS: TOPROL XL 25 MG PO (08:49)
[2024-03-20] MEDS: ZETIA 10 MG PO (08:49)
[2024-03-20] MEDS: PROTONIX 40 MG PO (08:49)
[2024-03-20] MEDS: ORETIC 25 MG PO (08:49)
--- NOTE | 2024-03-20 08:59 | W.PN.CD ---
Today's Communication / Plan
-
- Continue DAPT with ASA/ticagrelor for 12 months.
- Atorvastatin increased from 40 mg daily to 80 mg daily and Zetia added.
- Continue current doses of lisinopril, hydrochlorothiazide, and metoprolol succinate.
- Stable for discharge to home today.
Impression / Plan
-
69-year-old man with hypertension, hyperlipidemia, and very elevated coronary calcium score (2022.07) who presents with inferior STEMI status-post successful PCI.
# CAD/STEMI/HLD
- Stable status-post overlapping SADIA to proximal to mid RCA (on 03/17/2024) and subsequent staged-PCI with overlapping SADIA to LAD and overlapping SADIA to diagonal (on 03/19/2021).
- Echocardiogram yesterday with EF 60-65% and no significant valvulopathy.
- Continue DAPT with ASA/ticagrelor for 12 months.
- despite well controlled LDL (50-60s recently on Lipitor 40) he had a plaque rupture MN, so will need as ALARA LDL.
- Atorvastatin increased from 40 mg daily to 80 mg daily and Zetia added.
- Continue Toprol-XL 25 mg daily.
# LBBB
- Occurred after re-canalization of the RCA.
- Appears to be clinically stable; will continue to monitor as outpatient.
# HTN
-Continue current doses of lisinopril, hydrochlorothiazide, and metoprolol succinate.
Subjective:
No major events overnight.
Physical Exam
Vital Signs/Labs
Vital Signs
Temp Pulse Resp BP Pulse Ox
98.4 F 86 18 125/80 96
03/20/24 07:48 03/20/24 07:49 03/20/24 07:48 03/20/24 07:49 03/20/24 07:49
03/19/24 03/20/24 03/21/24
06:59 06:59 06:59
Actual Weight 84.5 kg 84.5 kg
03/20/24 03:51
03/20/24 03:51
PT 13.4 Sec (11.4-14.6) 03/17/24 08:05
INR 0.97 03/17/24 08:05
APTT 32.3 Sec (23.4-35.0) 03/17/24 08:05
Triglycerides 112 mg/dl (10-149) 03/18/24 04:16
LDL Cholesterol, Calc 60 mg/dl 03/18/24 04:16
VLDL Cholesterol, Calc 22 mg/dl (0-30) 03/18/24 04:16
HDL Cholesterol 42 mg/dl 03/18/24 04:16
LAB Results
03/17/24 03/17/24 03/17/24
10:56 17:05 22:50
Troponin I 0.805 H* D 2.570 H* D 2.080 H*
Physical Exam
Constitutional: No acute distress and Comfortable
EENT: Anicteric
Cardiovascular: Rhythm & rate is regular, Pedal edema is absent, Systolic murmur absent and S1S2 is normal
Respiratory: Respiratory effort normal and Lungs clear to auscul.
GI: Soft
Neuro/Psych: AO x 3
Other: Skin (Warm, dry, intact)
Data Reviewed
-
Date of Service: March 20, 2024
EKG: Report Reviewed by me (Telemetry: Sinus rhythm)
Echo: Report Reviewed by me (EF 60-65%)
Labs: Labs Reviewed by me
--- NOTE | 2024-03-20 10:11 | PTCARENOTE ---
Received patient this morning resting in bed, telemetry alarming with elevated HR with activity, patient denies any chest pain or sob. Patient seen by cardiology and may adjust meds, probable discharge today.
--- NOTE | 2024-03-20 10:30 | CM ---
Chart reviewed. Patient is independent of ADLS, lives with his in a [address], [address], 1st floor set up, 0 DME. Plan is for the patient to return home. CM to follow
[2024-03-20 10:58] VITALS: BP 131/70
--- NOTE | 2024-03-20 10:59 | W.DS.TRANS ---
DC Summary - Enrolled Agent
-
Discharge Instructions:
Discharge Diagnosis/Procedures STEMI, s/p angioplasty and stent x2 to Right
Coronary artery (03/17),
s/p lithotripsy with angioplasty and stent x2 to
Left Anterior Descending artery and x2 to
Diagonal artery (03/19)
Diet Low Cholesterol,2 Gram Sodium
Activity No strenuous activity
Additional Activity For 1 week
Driving Restrictions No driving for 24 hours
Other Services Cardiac Rehab
Instructions:
Stand-Alone Forms: DC Instructions- Cath/EP Lab
Changes to Home Medications: Yes
Discharge Medications:
DC Medications w/original date entered in [facility]
lorazepam 0.5 mg tablet 0.5 mg PO HS PRN SLEEP 01/10/18
omeprazole magnesium 20 mg tablet,delayed release (Prilosec OTC) 20 mg PO DAILY GERD 03/17/24
aspirin 81 mg chewable tablet 81 mg PO DAILY #0 tabs 03/19/24
atorvastatin 80 mg tablet 80 mg PO QPM #90 tabs 03/19/24
ezetimibe 10 mg tablet 10 mg PO DAILY #90 tabs 03/19/24
nitroglycerin 0.4 mg sublingual tablet 0.4 mg sublingual [id number] PRN chest pain #25 tabs 03/19/24
ticagrelor 90 mg tablet (Brilinta) 90 mg PO BID #180 tabs 03/19/24
hydrochlorothiazide 25 mg tablet 25 mg PO DAILY Blood pressure #30 tabs 03/20/24
lisinopril 5 mg tablet 5 mg PO DAILY Blood pressure #30 tabs 03/20/24
metoprolol succinate 25 mg tablet,extended release 24 hr 25 mg PO DAILY Blood pressure #30 tabs 03/20/24
Home Medication Changes
Lipitor dose increased to 80mg daily.
Zetia, Lisinopril, Brilinta, Toprol, Aspirin are new.
Pending Results: No
--- NOTE | 2024-03-20 12:17 | PTCARENOTE ---
Reviewed discharge instructions with the patient and his and they state their understanding. Aware of new medications ordered and follow up appointments. Patient discharged home with his .
== END 2024-03-20 12:17 | disposition home or self-care (01) | DRG 324 ==
LOC: IVU 11:09
PROVIDERS: Nurse Practitioner; ADMITTING PHYSICIAN Student in an Organized Health Care Education/Training Program; EMERGENCY PHYSICIAN Emergency Medicine; FAMILY PHYSICIAN Student in an Organized Health Care Education/Training Program
PROC: 4A023N7 Measurement of Cardiac Sampling and Pressure, Left Heart, Percutaneous Approach (ICD-10-PCS; 2024-03-17)
PROC: B240ZZ3 Ultrasonography of Single Coronary Artery, Intravascular (ICD-10-PCS; 2024-03-17)
PROC: B2111ZZ Fluoroscopy of Multiple Coronary Arteries using Low Osmolar Contrast (ICD-10-PCS; 2024-03-17)
PROC: 027035Z Dilation of Coronary Artery, One Artery with Two Drug-eluting Intraluminal Devices, Percutaneous Approach (ICD-10-PCS; 2024-03-17)
PROC: 027137Z Dilation of Coronary Artery, Two Arteries with Four or More Drug-eluting Intraluminal Devices, Percutaneous Approach (ICD-10-PCS; 2024-03-19)
PROC: 02F03ZZ Fragmentation in Coronary Artery, One Artery, Percutaneous Approach (ICD-10-PCS; 2024-03-19)
DX: I21.19 ST elevation (STEMI) myocardial infarction involving other coronary artery of inferior wall (principal); I25.10 Atherosclerotic heart disease of native coronary artery without angina pectoris; I10 Essential (primary) hypertension; E78.00 Pure hypercholesterolemia, unspecified; I44.7 Left bundle-branch block, unspecified; Z87.891 Personal history of nicotine dependence
CPT/HCPCS: 93308; 80048; 80053; 80061; 83036; 83695; 84484; 85025; 85027; 85347; 85610; 85730; 92972; 92978; 93005; 93321; 93325; 93458; 99285; C1725; C1753; C1761; C1874; C1894; C9600; C9601; C9606; J1327; Q9967

== ENCOUNTER 2024-05-18 15:22 | Outpatient (RCR) | payer MEDICARE, OTHER, SELFPAY | END 2024-05-18 23:59 | disposition home or self-care (01) | LOC: CRHB 15:22 | PROVIDERS: ATTENDING PHYSICIAN Internal Medicine | DX: I21.01 ST elevation (STEMI) myocardial infarction involving left main coronary artery (principal); Z95.5 Presence of coronary angioplasty implant and graft | CPT/HCPCS: G0422; G0423 ==

== ENCOUNTER 2024-06-18 15:24 | Outpatient (RCR) | payer MEDICARE, OTHER, SELFPAY | END 2024-06-18 23:59 | disposition home or self-care (01) | LOC: CRHB 15:24 | PROVIDERS: ATTENDING PHYSICIAN Internal Medicine | DX: I25.2 Old myocardial infarction (principal); I21.01 ST elevation (STEMI) myocardial infarction involving left main coronary artery (principal); I25.10 Atherosclerotic heart disease of native coronary artery without angina pectoris (principal); Z95.5 Presence of coronary angioplasty implant and graft | CPT/HCPCS: G0422; G0423 ==

== ENCOUNTER 2024-07-18 15:09 | Outpatient (RCR) | payer MEDICARE, OTHER, SELFPAY | END 2024-07-18 23:59 | disposition home or self-care (01) | LOC: CRHB 15:09 | PROVIDERS: ATTENDING PHYSICIAN Internal Medicine; FAMILY PHYSICIAN Student in an Organized Health Care Education/Training Program | DX: I21.01 ST elevation (STEMI) myocardial infarction involving left main coronary artery (principal); I25.10 Atherosclerotic heart disease of native coronary artery without angina pectoris (principal); Z95.5 Presence of coronary angioplasty implant and graft; I25.2 Old myocardial infarction | CPT/HCPCS: G0422; G0423 ==

== ENCOUNTER 2024-08-06 15:41 | Outpatient (RCR) | payer MEDICARE, OTHER, SELFPAY | END 2024-08-06 16:11 | disposition home or self-care (01) | LOC: CRHB 15:41 | PROVIDERS: ATTENDING PHYSICIAN Internal Medicine; FAMILY PHYSICIAN Student in an Organized Health Care Education/Training Program | DX: I21.01 ST elevation (STEMI) myocardial infarction involving left main coronary artery (principal); Z95.5 Presence of coronary angioplasty implant and graft; I25.2 Old myocardial infarction | CPT/HCPCS: 36415; 80061; G0422; G0423 ==

== ENCOUNTER → 2024-09-08 07:24 | Outpatient (REF) | payer MEDICARE, OTHER, SELFPAY ==
[2024-09-09 23:22] LABS: % Free Testosterone 1.8 % (1.6-2.9); Free Testosterone 96 pg/mL (47-244); Sex Hormone Binding Globulin 35 nmol/L (19-76); Total Testosterone 522 ng/dL (300-720)
== END ==
LOC: REG 07:24
PROVIDERS: ATTENDING PHYSICIAN Student in an Organized Health Care Education/Training Program
DX: N52.8 Other male erectile dysfunction (principal)
CPT/HCPCS: 36415; 84270; 84402; 84403

== ENCOUNTER → 2024-12-27 08:11 | Outpatient (REF) | payer MEDICARE, OTHER, SELFPAY | LOC: RAD 08:11 | PROVIDERS: ATTENDING PHYSICIAN Orthopaedic Surgery; FAMILY PHYSICIAN Student in an Organized Health Care Education/Training Program | DX: S05.40XA Penetrating wound of orbit with or without foreign body, unspecified eye, initial encounter (principal) | CPT/HCPCS: 70030 ==

== ENCOUNTER → 2025-01-07 15:59 | Outpatient (REF) | payer MEDICARE, OTHER, SELFPAY | LOC: MRI 15:59 | PROVIDERS: ATTENDING PHYSICIAN Orthopaedic Surgery; FAMILY PHYSICIAN Student in an Organized Health Care Education/Training Program | DX: M25.512 Pain in left shoulder (principal) | CPT/HCPCS: 73221 ==